=== PATIENT | female | born 1960 | race Caucasian/White ===

== ENCOUNTER 2017-08-09 21:00 | Emergency (ER) | payer SELFPAY ==
[~2017-08-09] VITALS: Ht 160 cm; Wt 81.6 kg
[~2017-08-09 21:00] MED LIST: AUGMENTIN 875875 MG PO; IBUPAIN-200200 MG PO; K-DUR 2020 MEQ PO; LOMOTIL 0.025 M1 TAB PO; MOTRIN800 MG PO; NKHM; Phenergan25 MG PO; TRAMADOL HCL50 MG PO
[2017-08-09 21:45] LABS: BILIRUBIN NEGATIVE (NEGATIVE); BLOOD 1+ (NEGATIVE); CLARITY SL CLOUDY (CLEAR); COLOR YELLOW (YELLOW); GLUCOSE NEGATIVE (NEGATIVE); KETONE NEGATIVE (NEGATIVE); LEUKO ESTERASE TRACE (NEGATIVE); NITRITE NEGATIVE (NEGATIVE); SPECIFIC GRAVITY <= 1.005 (1.005-1.030); UROBILINOGEN 0.2 E.U./dl (0.2-1.0)
[2017-08-09 21:51] LABS: BACTERIA TRACE; EPITHELIAL CELLS 50-55; WBC 0-2 wbc/hpf (0-5)
[2017-08-09 22:33] LABS: BASO % 0.4 % (0.0-1.0); EOS # 0.1 10*3/uL (0.0-0.4); EOS % 1.3 % (1.0-4.0); HEMATOCRIT 48.6 % (37.0-47.0); HEMOGLOBIN 15.9 g/dl (12.0-16.0); LYMPH # 2.5 10*3/uL (1.3-4.4); LYMPH % 25.4 % (27.0-41.0); MEAN CORPUSCULAR HGB 29.4 pg (27.0-31.0); MEAN CORPUSCULAR HGB CONC 32.7 g/dl (33.0-37.0); MEAN PLATELET VOLUME 11.1 fl (9.6-12.3); MONO # 0.6 10*3/uL (0.1-1.0); MONO % 6.6 % (3.0-9.0); NEUT # 6.4 10*3/uL (2.3-7.9); PLATELET COUNT AUTOMATED 244 10*3/uL (130-400); RED CELL DISTRI WIDTH 14.6 % (0-14.5); WHITE BLOOD COUNT 9.7 10*3/uL (4.8-10.8)
[2017-08-09 22:48] LABS: ALBUMIN 3.9 gm/dl (3.1-4.5); CREATININE 1.3 mg/dL (0.55-1.02); POTASSIUM 3.8 mmol/L (3.5-5.1); TOTAL PROTEIN 8.7 gm/dL (6.4-8.2)
[2017-08-10] MEDS ORDERED: Motrin,Rufen800 MG PO (00:56)
== END 2017-08-10 01:02 | disposition home or self-care (01) ==
LOC: ED 21:00
PROVIDERS: Emergency Medicine Emergency Medical Services
DX: R10.32 Left lower quadrant pain (principal); F17.200 Nicotine dependence, unspecified, uncomplicated; Z98.890 Other specified postprocedural states; Z88.5 Allergy status to narcotic agent

== ENCOUNTER 2018-04-03 17:19 | Emergency (ER) | payer SELFPAY ==
[~2018-04-03] VITALS: Ht 157.4 cm; Wt 74.8 kg
[~2018-04-03 17:19] MED LIST changes: +Motrin,Rufen800 MG PO
== END 2018-04-03 19:26 | disposition home or self-care (01) ==
LOC: ED 17:19
DX: S90.121A Contusion of right lesser toe(s) without damage to nail, initial encounter (principal); Z88.6 Allergy status to analgesic agent; X50.1XXA Overexertion from prolonged static or awkward postures, initial encounter; Y93.89 Activity, other specified; Y92.89 Other specified places as the place of occurrence of the external cause; Y99.8 Other external cause status